=== PATIENT | female | born 1965 | race Hispanic/Latino ===

== ENCOUNTER 2018-06-11 08:02 | Inpatient (IN) | payer OTHER, SELFPAY ==
[2018-05-31 09:24] VITALS: BMI 31.8
[2018-06-11] VITALS (21 sets, daily range): BP systolic 104–140; BP diastolic 59–96; PULSE 71–96; RESP 6–20; TEMP 35.6–36.8; O2SAT 89–100; BMI 31.4; BMI 31.8
[2018-06-11] MEDS: LACTATED RINGERS 1,000 ML 42 ML IV (09:27)
--- NOTE | 2018-06-11 10:51 | PM.PREOP ---
Pre-operative Note Interval Note Pre-op Check: Yes History & Physical Reviewed by Physician and Yes Exam Performed Changes: No
--- NOTE | 2018-06-11 10:51 | PM.OP.1 ---
Operative Date/Time/Diagnoses Date of procedure: 06/11/18 Time of procedure: 15:09 Pre-op diagnosis: Lumbar stenosis with radiculopathy Post-op diagnosis: same Procedure & Clinicians Procedure: L5S1 TLIF (post/post innerbody fusion) L5 and S1 screws L5S1 cage icbg L5S1 laminectomy microscope placement of epidural catheter Same procedure as scheduled: Yes Indications: [age] year old female with intractable pain from stenosis. They had failed conservative management and requested operative intervention. Risks and benefits of surgery were discussed and appropriate consents were obtained. Surgeon: Carlos Manuel Duvall Archives Technician: Melissa Brown Anesthesia Type: General Operative Notes Findings: none Closure Type: primary Specimen(s): none sent Implants & Drains: NuVasive MAS reline screws and Globus Rise cage Applied: catheter Estimated Blood Loss (mL): 300 Procedure in detail: The patient was brought to the operating room and intubated on the table. A time-out was performed. They were then rolled over to the well-padded Mendel table in the prone position. Preoperative antibiotics were given. The back was prepped and draped in the standard sterile fashion. Using fluoroscopy, a 4 cm longitudinal incision was made to the right of the midline. We used Bovie to come down to and split the lumbodorsal fascia. Using fluoroscopy and monitoring, we then percutaneously placed Jamshidi needles down the pedicles of L5 and S1 on the right side. These were changed out to guidewires and then we tapped and then placed the NuVasive MAS Precept screw shanks. We then opened up the retractors and used Bovie to clear up the posterolateral gutter as well as medially along the lamina to the spinous processes. A bur was used to decorticate the transverse processes. Using a combination of bur and Kerrison rongeurs, a laminectomy was performed from the right side. We cleared over past the midline and carefully depressed the dura until we were able to decompress the opposite side. We cleared out the neural foramen. This completed the laminectomy at L5-S1. We then began the TLIF prep. A complete facetectomy was performed on this side at L5-S1. We carefully cleaned up the remainder of the foramen until we could easily retract the exiting root as well as clearing medially below the dura and expose the disc space. The disc was prepped with bipolar and then an annulotomy was performed. There was a large amount of epidural bleeding at this point. Had to use a combination of bipolar, FloSeal, and patties to finally be able to get it to stop but then it was dry after that. We performed a diskectomy using a combination of paddles, ping, Kerrison, and curettes. We distracted the disc using a paddle and locked the retractor in an open position. We then filled the disc space with Osteocell bone graft. We then placed the globus Rise cage under fluoroscopy and then filled this in with more bone graft. The distraction on the retractor was released to compress down. This completed the posterior interbody fusion portion of the TLIF at L5-S1. We then placed the screw heads, prerna, and locked down the set screws. The wound was copiously irrigated. A small stab incision was made over the PSIS. We used a Jamshidi needle to aspirate several mL of bone marrow from the pelvis. This was mixed with the remaining Osteocell and combined with all of the locally harvested bone graft and placed in the posterolateral gutter for the posterior fusion of the TLIF at L5-S1. An epidural catheter was then placed in the spinal canal by carefully depressing the dura and advancing it 6 cm cephalad under the remaining lamina without resistance. The muscle fascia was closed. The catheter was then injected with a solution containing 4 mL of 0.5% Marcaine, 1 mg Stadol, 4 mg Duramorph, and 100 mcg of fentanyl. This was injected without resistance and the catheter was pulled. We then went to the opposite side. Again using fluoroscopy, a 3 cm incision was made and Bovie was used to come down to split the fascia. Using neural monitoring and fluoroscopy, Jamshidi needles were advanced down the pedicles of L5 and S1 on the left side. These were switched over guidewires, tapped, and screws placed. We then placed a prerna and locked the set screws on this side. The wound was irrigated. The fascia was closed. Vancomycin powder was placed in the wounds. The superficial and skin were closed. A sterile dressing was placed. The patient was then rolled over extubated and brought to recovery room without complications. Complications: none Condition: stable Disposition: PACU Plan for aftercare: Inpatient. Up with therapy.
[2018-06-11] MEDS: CEFAZOLIN 2 GM/100 ML FROZ.PIGGY IV ×2 (11:40→20:37)
[2018-06-11] MEDS: LACTATED RINGERS 1,000 ML 73.3 ML IV (12:23)
--- NOTE | 2018-06-11 12:41 | SUR.OPER ---
Prone on spine table, head in foam head support, padded chest and pelvic supports, gel pad at knees, lower legs supported by pillows; nipples, genitalia and toes free of pressure, arms secured on foam padded arm boards at <90 degrees abduction. Tape over blanket at thigh secured to table.
[2018-06-11] MEDS: THROMBIN (BOVINE) 5,000 UNIT VIAL 5000 UNIT TOP (12:52)
[2018-06-11] MEDS: SODIUM CHLORIDE 0.9% 1,000 ML, GENTAMICIN 80 MG IRR (12:55)
[2018-06-11] MEDS: VANCOMYCIN 1,000 MG VIAL 1000 MG TOP (12:55)
[2018-06-11] MEDS: BUPIVACAINE 0.5% (PF) 4 ML, MORPHINE-PF 4 MG, BUTORPHANOL 1 MG, fentaNYL 100 MCG INJ (14:30)
--- NOTE | 2018-06-11 14:51 | DI.RAD.S_ITS ---
PROCEDURE: XR LUMBAR SPINE 2-3V INDICATIONS: L5-S1 TLIF TECHNIQUE: 2 views of the lumbar spine were acquired. COMPARISON: None. FINDINGS: 2 intraoperative fluoroscopy images demonstrate discectomy and posterior fusion at L5-S1. There is a disc prosthesis. Surgical hardware are in expected position. The alignment is normal. IMPRESSION: Expected post surgical changes. Dictated by: Ibis Alvarado M.D. on 06/11/2018 at 17:12 Approved by: Ibis Alvarado M.D. on 06/11/2018 at 17:14
[2018-06-11] MEDS: fentaNYL 100 MCG/2 ML INJ 50 MCG IV ×4 (15:53→16:13)
--- NOTE | 2018-06-11 15:54 | SUR.PHASEI ---
Squeezing right hand. Says it is numb. When asked says it is always a little mumb. BP cuff moved to left arm from [facility]
[2018-06-11] MEDS: ONDANSETRON 4 MG/2 ML INJ IV (17:19)
[2018-06-11] MEDS: LACTATED RINGERS 1,000 ML 125 ML IV (17:19)
[2018-06-11] MEDS: SENNOSIDES 8.6 MG TABLET 17.2 MG PO (20:39)
[2018-06-11] MEDS: GABAPENTIN 300 MG CAPSULE PO (20:39)
[2018-06-11] MEDS: DOCUSATE 100 MG CAPSULE PO (20:39)
[2018-06-11] MEDS: CELECOXIB 200 MG CAPSULE PO (20:39)
[2018-06-11] MEDS: METOCLOPRAMIDE 10 MG/2 ML INJ IV (21:25)
--- NOTE | 2018-06-11 21:52 | PC.NURSE ---
Post-op notes: 1644: Nicolasa brought from PACU via hospital bed, awake, Ox3, drowsy & sedated, falling asleep, RA oxygen dipping into the 80's. ASSISTANT TO THE DIRECTOR applied 2L O2, sats going back up in the 90's. Sats have maintained mid-high 90's until she closes her eyes and starts to doze, sats earlier even on 2L dropping to 78 once, but mostly mid 80's. Arouses quickly and sats go back to high 90's and 100% while awake & talking to family. I observed obvious apneic periods when is asleep. I increased O2 to 4L O2 by this nurse until patient more awake. I notified RT of need for O2 & apnea. Continuous pulse ox monitoring at all times. Patient told nursing I need to have a sleep study. Medicated with Zofran IV for nausea earlier tonight, pt then able to tolerate clear/full liquids, then small snacks. She did tell staff member I threw up twice but family did not measure or save for accurate output measurement. Staff asked family to call nurse if patient becomes nauseated or throws up--they agree to this. 2100: Nicolasa is much more awake tonight, Ox3, O2 monitor not alarming when asleep. After 2100 med pass, patient asked for turkey sandwich & apple juice. Denied nausea at that time. Within 10 minutes she vomited 600 ml liquid/food mixed. Medicated with Reglan IV. She denies any back pain. Repositioned to right side for comfort, back drsg remains CDI. She is now dozing, call button in reach & bed alarm active. Her son is staying the night on window bench.
[2018-06-11] MEDS: HYDROCODONE/ACET 5/325 TABLET 2 TAB PO (22:12)
[2018-06-12] VITALS (8 sets, daily range): BP systolic 96–112; BP diastolic 60–78; PULSE 73–101; RESP 16–18; TEMP 36.4–36.8; O2SAT 92–100
--- NOTE | 2018-06-12 00:15 | PC.NURSE ---
Addendum entered by Dale Price R.N. 06/12/18 06:16: 0600: Pt slept for a few hours after pain medication, states she feels better, and less pain. Original Note: Rubber Production Machine Operator Note: 0000: Awake, alert. Advised pt to take clear liquids tonight and advance as tolerated in the morning due to nausea and vomiting. Instructed in log-rolling. Turned and repositioned at this time. SCDs on. Dressing to lower back is cdi. IV in place in lt hand with LR infusing at 125cc/hr. Son at bedside.
[2018-06-12] MEDS: HYDROCODONE/ACET 5/325 TABLET 1 TAB PO ×2 (02:06→18:23)
[2018-06-12] MEDS: hydrOXYzine pamoate 25 MG CAPSULE PO ×2 (02:06→16:06)
[2018-06-12] MEDS: HYDROCODONE/ACET 5/325 TABLET 2 TAB PO ×5 (02:07→22:41)
[2018-06-12] MEDS: LACTATED RINGERS 1,000 ML 125 ML IV (02:07)
[2018-06-12] MEDS: CEFAZOLIN 2 GM/100 ML FROZ.PIGGY IV (04:22)
[2018-06-12 07:34] LABS: Hematocrit 34.3 % (36-46); Hemoglobin 11.5 g/dL (12.0-16.0)
[2018-06-12] MEDS: DOCUSATE 100 MG CAPSULE PO ×2 (07:52→19:57)
[2018-06-12] MEDS: CELECOXIB 200 MG CAPSULE PO ×2 (07:52→19:57)
--- NOTE | 2018-06-12 07:57 | PM.PNPO.1 ---
Subjective Date Patient Seen: 06/12/18 Time Patient Seen: 07:58 Interval history: She is doing fairly well. Pain is about a 6. No leg pain, all back pain. Exam Vital Signs (past 8 hours): - 06/12/18 06:15 06/12/18 07:18 Temperature 97.6 F 98.1 F Pulse Rate 73 77 Respiratory Rate 16 18 Blood Pressure 105/63 106/60 Pulse Oximetry 98 100 Oxygen Delivery Method Room Air Oxygen Flow Rate 2 Const Orientation: alert and oriented x3 Back/Spine/Pelvis Other: 5/5 motor both lower extremities. Minimal dry drainage on dressing. Objective Labs Result Diagrams: 06/12/18 06:05 Labs: Laboratory Results - last 24 hr 06/12/18 06:05 Hgb 11.5 L Hct 34.3 L Assessment & Plan Post-op Postoperative Procedures Operation Date: 06/11/18 10:15 Actual Procedures Side Surgeon p L5-S1 Laminectomy & Instru. Fusion(TLIF)w/Bone Graft Carlos Manuel Duvall MD Overall she is doing very well. Mobilize with physical therapy. Anticipate discharge in the next 1-2 days. Quality VTE Deep Vein Thrombosis/Pulmonary Embolism Present on Admission: No
--- NOTE | 2018-06-12 11:15 | PT.IIE ---
Current Diagnoses Spinal stenosis, lumbar region with neurogenic claudication (06/11/18) Strain of muscle, fascia and tendon of lower back, subsequent encounter (06/11/18) Surgery Performed Operation Date: 06/11/18 10:15 Actual Procedures p L5-S1 Laminectomy & Instru. Fusion(TLIF)w/Bone Graft - Carlos Manuel Duvall MD Surgical History (Last Updated 05/31/18 @ 10:30 by Judith Agosto, RN) H/O left knee surgery (Acute) H/O: (Acute) History of ankle surgery (Acute) History of bilateral tubal ligation (Acute) Hx laparoscopic cholecystectomy (Acute) S/P epidural steroid injection (Acute) S/P right knee arthroscopy (Acute) Status post left foot surgery (Acute) Medical History (Last Updated 05/31/18 @ 10:38 by Judith Agosto, RN) Hypertension (Acute) Lumbar stenosis with neurogenic claudication (Acute) Postmenopausal (Acute) Seasonal allergies (Acute) Strain of lumbar region (Acute) Tinnitus, right ear (Acute) Vitamin D deficiency (Acute) Physical Therapy Inpatient Evaluation/Re-Eval M1 PT/OT-IP Prior Functional Status Start: 06/12/18 13:43 Freq: NEEDED Status: Active Protocol: Document 06/12/18 11:15 AB (Rec: 06/12/18 13:51 AB [id number]) Medical Review Prior Functional Status Medical History Reviewed Yes Communication able to make needs known Mobility and Gait stated that she is independent with all mobilities and ambulation without AD Social History Household Members spouse family children Living Arrangements House Number of Floors (Floors) One Floor Number of Stairs To Enter/Railing? 2 steps to enter without rails Home Environment Standard Height Toilet Tub/Shower Employment Status Retired Additional Social History Comment stated that her daughter will assist her at home M2 PT-IP Current Condition Start: 06/12/18 13:43 Freq: NEEDED Status: Active Protocol: Document 06/12/18 11:15 AB (Rec: 06/12/18 13:51 AB [id number]) Physical Therapy Current Condition Current Condition Evaluation Date 06/12/18 Treatment Diagnosis s/p L5S1 TLIF, laminectomy; difficulty in walking Onset Date 06/11/18 Precautions Lumbar Precautions Log Roll No Twisting Limit Bending Lifting Restriction of 10 lbs Gait Belt above Incisional Area M3 PT-IP Subjective Start: 06/12/18 13:43 Freq: NEEDED Status: Active Protocol: Document 06/12/18 11:15 AB (Rec: 06/12/18 13:51 AB [id number]) Subjective Physical Therapy Visit Type Type Initial Evaluation Visit Start Time 11:15 Visit Stop Time 11:54 Total Visit Minutes 39 Number of PAUNCH TRIMMER Visits 0 Physical Therapy Visit Comments Patient Comments pt agreed to get up Therapy Pain Assessment Pain When Pain Assessed During Mobility Pain Present Pain Present Pain Reported Location Back Scale Used pain scale not stated Pain Management Techniques Apply Cold Timing of Activity with Medications M4 PT-IP Mobility and Gait Start: 06/12/18 13:43 Freq: NEEDED Status: Active Protocol: Document 06/12/18 11:15 AB (Rec: 06/12/18 13:51 AB [id number]) PT-Bed Mobility Assessment Supine to Sit Supine to Sit Minimal Assistance Scooting Scooting to Edge of Bed Contact Guard Assistance PT-Transfer Assessment Sit to and From Stand Sit to and from Stand Contact Guard Assistance Equipment Transfer Assistive Device Gait Belt Front Wheeled Walker Orthotic/Prosthetic Devices or Brace: No Transfers Transfer Destination Chair Transfer Ability Level of Assist Contact Guard Assistance Gait Assessment Gait Gait Assistance Required: Minimum Assistance Distance (Feet) (feet) 15 Able to Maintain Weight Bearing Status Yes During Gait Assistive Devices Assistive Device None Front Wheeled Walker Orthotic/Prosthetic Devices or Brace: No Gait Deviations General Gait Pattern Decreased Stride Length Decreased Feet Clearance Factors Limiting Gait Function Factors Limiting Gait Function Decreased Activity Tolerance Decreased Strength Pain Poor Balance Poor Safety Awareness PT-Balance Assessment Sitting Balance and Reactions Static Sitting Balance Ability Good Dynamic Sitting Balance Ability Good Standing Balance and Reactions Static Standing Balance Ability Fair Dynamic Standing Balance Ability Fair Device Used FWW M5 PT-IP Objective Assessments Start: 06/12/18 13:43 Freq: NEEDED Status: Active Protocol: Document 06/12/18 11:15 AB (Rec: 06/12/18 13:51 AB [id number]) Orientation Orientation/Cognition Level of Alertness Alert Orientation Name Age Birthday Month Date Year Day of Week Place Situation Safety Awareness Decreased Safety Awareness Gross Range of Motion Lower Extremity ROM Assessment Within Functional Limits Strength Lower Extremity Strength Assessment Bilaterally Impaired Comments Strength Comments LLE weaker than RLE LLE 3+/5 Sensation Assessment Sensation Gross Sensation WNL Muscle Tone Muscle Tone WNL Yes M6 PT-IP Treatment Start: 06/12/18 13:43 Freq: NEEDED Status: Active Protocol: Document 06/12/18 11:15 AB (Rec: 06/12/18 13:51 AB [id number]) Physical Therapy Treatment Education Education Provided Precautions Weight Bearing Status Post-Op Packet Safety M7 PT-IP Assessment and Plan Start: 06/12/18 13:43 Freq: NEEDED Status: Active Protocol: Document 06/12/18 11:15 AB (Rec: 06/12/18 13:51 AB [id number]) PT Summary Assessment and Plan Potential Rehabilitation Potential Good Status of Condition at Evaluation Stable Summary Impairments Pain ROM Strength Balance Coordination Sensation Tone Cognition Bed Mobility Transfers Gait Activity Tolerance Assessment Summary pt requiring min A with mobility and unable to tolerate much ambulation this morning using FWW. pt will likely progress with mobility during hospital stay. pt's daughter will be assisting pt at home. caregiver training will be conducted when appropriate. stair climbing will also be completed prior to d/c. Goals Bed Mobility Goal Independent Transfer Goal Standby Assistance Front Wheeled Walker Gait Goal Standby Assistance Front Wheel Walker Gait Distance 100 Other Goals up/down 2 steps without rails Days to Meet Goals 3 Frequency of Treatment Frequency Of Treatment Twice a Day Treatment Plan Physical Therapy Treatment Plan Bed Mobility Training Transfer Training Gait Training Therapeutic Exercise Balance Retraining Post Op Education Discharge Planning Hot or Cold Pack Neuromuscular Re-ed Coordination Retraining Manual Therapy Other Recommendations and Next Treatment ambulation, stair climbing Focus Recommendations To Nursing Amount of Assist Needed 1 Person Assist Discharge Recommendations PT Discharge Recommendations Home with Assistance Equipment Needed for Home Before FWW: pt stated that they will Discharge be able to get one
--- NOTE | 2018-06-12 11:25 | PC.NURSE ---
Day Shift Note Alert and oriented x3. Weaned off oxygen to RA with sats in the 94-96% range. Reports pain well controlled on [place]. Denies any nausea. Tolerated full liquids for breakfast, advanced to regular diet for lunch. PT currently in room to work with patient.
--- NOTE | 2018-06-12 14:30 | OT.IP.EVAL ---
Current Diagnoses Spinal stenosis, lumbar region with neurogenic claudication (06/11/18) Strain of muscle, fascia and tendon of lower back, subsequent encounter (06/11/18) Surgery Performed Operation Date: 06/11/18 10:15 Actual Procedures p L5-S1 Laminectomy & Instru. Fusion(TLIF)w/Bone Graft - Carlos Manuel Duvall MD Past Medical History (Last Updated 05/31/18 @ 10:38 by Judith Agosto, RN) Hypertension (Acute) Lumbar stenosis with neurogenic claudication (Acute) Postmenopausal (Acute) Seasonal allergies (Acute) Strain of lumbar region (Acute) Tinnitus, right ear (Acute) Vitamin D deficiency (Acute) Surgical History (Last Updated 05/31/18 @ 10:30 by Judith Agosto, RN) H/O left knee surgery (Acute) H/O: (Acute) History of ankle surgery (Acute) History of bilateral tubal ligation (Acute) Hx laparoscopic cholecystectomy (Acute) S/P epidural steroid injection (Acute) S/P right knee arthroscopy (Acute) Status post left foot surgery (Acute) Occupational Therapy Inpatient Evaluation/Re-Eval M1 PT/OT-IP Prior Functional Status Start: 06/12/18 13:43 Freq: NEEDED Status: Active Protocol: Document 06/12/18 14:30 HARVEY (Rec: 06/12/18 17:17 PJM [id number]) Medical Review Prior Functional Status Medical History Reviewed Yes Diet/Fluid Consistency Regular Communication WNL, first language is Tristanian , but pt speaks and understands Cameroonian well Mobility and Gait stated that she is independent with all mobilities and ambulation without AD Activities of Daily Living and IADL's Pt indep with 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 Prior Functional Level (Other details) (works) and 2 daughters can assist pt after discharge. One daughter is taking 1 week off work to assist pt PRN. Social History Household Members spouse family children Living Arrangements House Number of Floors (Floors) One Floor Number of Stairs To Enter/Railing? 2 stairs to enter, no rail Home Environment Standard Height Toilet Tub/Shower Doors Home Equipment Front Wheel Walker Long Handled Sponge Wall To Wall Carpet Installer Employment Status Unemployed Additional Social History Comment Pt lives with , 2 daughters, son, son in law, 2 small grandchildren. M2 OT-IP Current Condition Start: 06/12/18 17:02 Freq: Status: Active Protocol: Document 06/12/18 14:30 PJM (Rec: 06/12/18 17:17 PJM [id number]) Occupational Therapy Current Condition Current Condition Evaluation Date 06/12/18 Treatment Diagnosis decreased self care,mobility s /p L5-S1 lami/TLIF Diagnosis Onset Date 06/11/18 Post Operative Precautions Lumbar Precautions Log Roll No Twisting Limit Bending Lifting Restriction of 10 lbs Gait Belt above Incisional Area M3 OT- IP Subjective and Pain Start: 06/12/18 17:02 Freq: Status: Active Protocol: Document 06/12/18 14:30 PJM (Rec: 06/12/18 17:17 PJM [id number]) OT- Subjective Occupational Therapy Visit Type Type Initial Evaluation Visit Start Time 14:01 Visit Stop Time 14:30 Total Visit Minutes 29 Occupational Therapy Visit Comments Patient/Caregiver Goals to go home tomorrow OT Pain Assessment Pain When Pain Assessed After Treatment Pain Present Pain Present Pain Reported Location Back Intensity 6 Scale Used Numeric (1 - 10) Description Aching Acute M4 OT- IP ADL's Start: 06/12/18 17:02 Freq: Status: Active Protocol: Document 06/12/18 14:30 PJM (Rec: 06/12/18 17:17 PJM [id number]) OT [id number] General Evaluation Diet Level for Self-Feeding general Self-Feeding Ability Independent OT ADL-Grooming General Evaluation Grooming Ability Standby Assistance Comments OT Grooming Comments in chair OT ADL-Oral Care General Eval Oral Care Ability Standby Assistance Comments Oral Care Comments in chair OT ADL-Dressing General Eval Upper Body Dressing Ability Independent Lower Body Dressing Ability Maximum Assistance Areas Needing Assistance Pants/Shorts Socks Assistive Devices Dressing Assistive Devices Wall To Wall Carpet Installer Comments OT Dressing Comments Provided education re: lower body dressing with foreign food specialty cook, sock aid. Provided foreign food specialty cook. Pt declines sock aid as she prefers family to assist PRN. She wears slip on shoes; declines long shoe horn. Daughters to assist pt PRN at home. OT ADL-Toileting General Evaluation Toileting Ability Minimal Assistance Areas Needing Assistance Perform Perineal Hygiene Comments OT Toileting Comments Provided education re: options and resources for toilet paper aids. Daughters to look online and order one for pt. OT ADL-Bathing Devices Bathing Equipment Long Handled Sponge or [place] Comments OT Bathing Comments to be assessed. Pt has long bath sponge. Provided education re: body mechanics. Pt plans to stand to shower. M5 OT- IP IADL's Start: 06/12/18 17:02 Freq: Status: Active Protocol: Document 06/12/18 14:30 PJM (Rec: 06/12/18 17:17 PJM [email or web address]) OT-Instrumental Activities of Daily Living Deficits IADL Deficits Identified Deficits Home Safety Awareness Awareness of Need for Assistance at Home Good Awareness Ability to Problem Solve Emergency Able to Problem Solve Situations Medication Management Medication Management No Deficits Identified Money Management Money Management No Deficits Identified Meal Preparation Meal Preparation Caregiver Provides Assist Meal Preparation Comments family to assist PRN Analyst Geochemical Prospecting Analyst Geochemical Prospecting Caregiver Provides Assist Analyst Geochemical Prospecting Comments family to assist PRN Driving Driving Comments family to assist until pt able M6 OT- IP Functional Cognition Start: 06/12/18 17:02 Freq: Status: Active Protocol: Document 06/12/18 14:30 PJM (Rec: 06/12/18 17:17 PJM [email or web address]) Cognitive Factors Limiting Selfcare Function Cognitive Ability Level of Alertness Alert Patient Orientation Name Age Birthday Month Date Year Day of Week Place Situation Attention Span Ability Capable of Focused Attention Capable of Sustained Attention Ability to Follow Commands Able to Follow One Step Commands Memory Description No Deficits Noted Safety Awareness No Deficits Noted Problem Solving Ability No deficits Noted Executive Function Ability No Deficits Noted Cognitive Comments Cognitive Assessment Comments cognition appears WNL OT- Vision and Hearing OT- Hearing Assessment OT- Hearing Assessment WFL OT- Vision Assessment Visual Acuity WFL Vision Assessment Comments Pt denies any recent changes. M7 OT- IP Mobility and Balance Start: 06/12/18 17:02 Freq: Status: Active Protocol: Document 06/12/18 14:30 PJM (Rec: 06/12/18 17:17 PJM [id number]) OT-Transfer Assessment Comments Mobility Comments see P.T. notes OT- Gait Assessment Comments Gait Ability Comments see P.T. notes OT- Balance Assessment Comments Other Balance Tests/Deviations/Treatment see P.T. notes : M8 OT- IP Objective Assessments Start: 06/12/18 17:02 Freq: Status: Active Protocol: Document 06/12/18 14:30 PJM (Rec: 06/12/18 17:17 PJM [id number]) OT Gross Range of Motion Upper Extremity Range of Motion Assessment Within Functional Limits OT Strength Upper Extremity Strength Assessment Within Functional Limits OT- Coordination Assessment Comments Coordination Comments BUE WFL OT-Muscle Tone Assessment Muscle Tone WNL Yes OT Sensation Assessment Comments Summary Comments Pt denies deficits in BUE's Edema Edema Absent M9 OT- IP Assessment and Plan Start: 06/12/18 17:02 Freq: Status: Active Protocol: Document 06/12/18 14:30 PJM (Rec: 06/12/18 17:17 PJM [id number]) OT Summary Assessment and Plan Potential Rehabilitation Potential Good Analytic Complexity at Evaluation Low Summary OT Impairments Pain Grooming Dressing Toileting Bathing Toilet Transfers Shower Transfers Assessment Summary Low complexity OT assessment completed with emphasis on self are skills within lumbar spine precautions. Pt currently has mild performance deficits in standing grooming, dressing, bathing, toileting and functional mobility. Pt will benefit from one additional OT visit here to practice adapted ADLS. Anticipate pt will be able to discharge home with family assist when medically stable and clears P.T. Goals Grooming Goal Independent Dressing Goal Standby Assistance Wall To Wall Carpet Installer Toileting Goal Standby Assistance Toilet Paper Aid Bathing Goal Minimal Assistance Toilet Transfer Goal Independent Shower Transfer Goal Standby Assistance Patient/Caregiver Education Goal Demonstrate Post-Op Precautions Caregiver Independent Assisting Patient OT-Other Goals Grooming to be done standing with good body mechanics. Family will assist with socks at home PRN. Days to Meet Goals 2 Frequency of Treatment Frequency Of Treatment Once a Day Treatment Plan OT Treatment Plan ADL Training Functional Mobility Patient/Family Education Discharge Planning Discharge Recommendations OT Discharge Recommendations Home with 23/04 Assist
--- NOTE | 2018-06-12 15:25 | PT.IPTN ---
Current Diagnoses Spinal stenosis, lumbar region with neurogenic claudication (06/11/18) Strain of muscle, fascia and tendon of lower back, subsequent encounter (06/11/18) Surgery Performed Operation Date: 06/11/18 10:15 Actual Procedures p L5-S1 Laminectomy & Instru. Fusion(TLIF)w/Bone Graft - Carlos Manuel Duvall MD Physical Therapy Treatment Note M2 PT-IP Current Condition Start: 06/12/18 13:43 Freq: NEEDED Status: Active Protocol: Document 06/12/18 11:15 AB (Rec: 06/12/18 13:51 AB [id number]) Physical Therapy Current Condition Current Condition Evaluation Date 06/12/18 Treatment Diagnosis s/p L5S1 TLIF, laminectomy; difficulty in walking Onset Date 06/11/18 Precautions Lumbar Precautions Log Roll No Twisting Limit Bending Lifting Restriction of 10 lbs Gait Belt above Incisional Area M3 PT-IP Subjective Start: 06/12/18 13:43 Freq: NEEDED Status: Active Protocol: Document 06/12/18 15:24 LJ (Rec: 06/12/18 15:25 LJ [id number]) Subjective Physical Therapy Visit Type Type Patient Refusal Notes Nurse in with pt. Just returned to bed. Reported pain in minimal. Nurse stated they would get her up and walk later.
--- NOTE | 2018-06-12 15:43 | CM.DANOTE ---
Patient is a 53 year old female who was admitted on 06/11/18 for TLIF. Pt has [employer] for insurance and her PCP is Dr. Addison. EMR was reviewed. Per MD, pt tolerated procedure well and likely can d/c home in 1-2 days pending progress with PT. Per PT, pt is Independent with ADL's at baseline and lives with family and Dtr is available to assist at d/c and likely will be safe for d/c home. Recommending FWW at d/c that fits pt's small stature. No needs currently identified. SW unable to complete bedside assessment due to triage needs. Plan for d/c home pending PT. Plan: SW to follow for further PT to confirm pt safe for d/c home with family assist when medically stable. SW to follow for any further identified discharge planning needs. ASLHEY Duran Discharge Planning/Care Management CM Discharge Assessment Start: 06/12/18 15:41 Freq: Status: Active Protocol: Document 06/12/18 15:41 BF (Rec: 06/12/18 15:43 BF [id number]) Discharge Planning Assessment Assigned Hospice Community Liaison ASHLEY Marks Advance Directives? No Advance Directives on File No History Provided By Patient Medical Record Has Patient been admitted in last 30 No days? Prior Living Arrangements House Household Members spouse family children Type of transporation used prior to Drives own vehicle admit Independent with ADL's Yes Is patient alert and oriented? Yes Caregiver for Another Yes: children Barriers to Discharge No Discharge Plan Home Community Services Physical Therapy Transportation Arrangement Family plans to provide transport Referrals Initiated None needed Inpatient Status as of 06/11/18 Whiteboard Updated in Patient Room with No name and ext. # of Hospice Community Liaison Review Status In Process Please Provide Date Initial DC 06/12/18 Assessment Was Performed
--- NOTE | 2018-06-12 18:29 | PC.NURSE ---
vicodin 2 tabs vicodin administered at 1820. Only 1 documented as when scanned 2nd tab triggered warning that tylenol max was reached for the 24hr limit. this is in fact incorrect. per review 3 tabs (1 under the 1 tab and 2 under the 2 tab) were scanned at 0207. per the narcotics count sheet, only 2 tabs were checked out to the patient.
[2018-06-12] MEDS: CYCLOBENZAPRINE 10 MG TABLET PO (19:56)
[2018-06-12] MEDS: SENNOSIDES 8.6 MG TABLET 17.2 MG PO (19:56)
[2018-06-12] MEDS: GABAPENTIN 300 MG CAPSULE PO (19:57)
[2018-06-12] MEDS: SODIUM CHLORIDE 0.9% FLUSH 10 ML IV (19:58)
[2018-06-13] MEDS: HYDROCODONE/ACET 5/325 TABLET 2 TAB PO ×3 (03:54→12:03)
[2018-06-13 04:30] VITALS: BP 125/75; PULSE 83; RESP 17; TEMP 36.9; O2SAT 92
--- NOTE | 2018-06-13 07:27 | PM.PNPO.1 ---
Subjective Date Patient Seen: 06/13/18 Interval history: Patient seen bedside s/p TLIF POD #2. Patient doing well. Exam Vital Signs (past 8 hours): - 06/13/18 04:30 Temperature 98.4 F Pulse Rate 83 Respiratory Rate 17 Blood Pressure 125/75 Pulse Oximetry 92 Fraction of Inspired Oxygen 21 Oxygen Delivery Method Room Air Oxygen Flow Rate 0 Objective Labs Result Diagrams: 06/12/18 06:05 Labs: Laboratory Results - last 24 hr 06/12/18 06:05 Hgb 11.5 L Hct 34.3 L Assessment & Plan Post-op Postoperative Procedures Operation Date: 06/11/18 10:15 Actual Procedures Side Surgeon p L5-S1 Laminectomy & Instru. Fusion(TLIF)w/Bone Graft Carlos Manuel Duvall MD Quality VTE Deep Vein Thrombosis/Pulmonary Embolism Present on Admission: No
--- NOTE | 2018-06-13 07:35 | PM.DS.1 ---
History of Present Illness Date Patient Seen: 06/13/18 Chief complaint: [id number] L5-S1 TLIF Narrative: Patient seen bedside s/p TLIF POD #2. Patient is doing well, pain is controlled and she would like to go home. She denies chest pain, shortness of breath, nausea, vomiting and calf pain. Discharge Providers Date of admission: 06/11/18 08:02 Primary care physician: Ziggy Addison MD Consults: 06/11/18 17:12 Consult to Occupational Therapy Evaluate & Treat Comment: Physician Instructions: Evaluate and treat Consult to Physical Therapy Evaluate & Treat Comment: Physician Instructions: Evaluate and Treat 06/11/18 17:13 Consult to Respiratory Therapy Evaluate & Treat Comment: Physician Instructions: Evaluate and treat Discharge provider: Laurie Hart PA-C Summary Discharge Diagnosis: Lumbar stenosis with neurogenic claudication Hospital Course: Patient admitted to the hospital s/p L5S1 laminectomy and instrumented fusion (TLIF) with bone graft on 06/11/18. Patient tolerated the procedure well with no major complications. Patient was transferred to the floor and seen by PT who recommended discharge home. Patient was stable and ready for d/c on 06/13/18. Status at Discharge Cognitive/behavioral status at discharge: A&Ox4 Functional status at discharge: uses cane/walker Overall status at discharge: patient is progressing back to baseline Exam Vital Signs (past 8 hours): - 06/13/18 04:30 Temperature 98.4 F Pulse Rate 83 Respiratory Rate 17 Blood Pressure 125/75 Pulse Oximetry 92 Fraction of Inspired Oxygen 21 Oxygen Delivery Method Room Air Oxygen Flow Rate 0 Narrative Exam Narrative: Well-developed well-nourished no acute distress. Alert and oriented x3. Lumbar spine dressing is clean dry and intact with no discharge minimal redness and swelling. She is neurovascularly intact bilateral lower extremities with no focal deficits noted. Her calves are soft and compressible. She has full range of motion of the hip knee and ankle. Objective Labs Result Diagrams: 06/12/18 06:05 Labs: Laboratory Results - last 24 hr 06/12/18 06:05 Hgb 11.5 L Hct 34.3 L Discharge Plan Discharge Plan Patient Disposition: Home Discharge comment: Follow-up 1.[address] Duvall Discharge Med Rec/Prescriptions Prescriptions: New docusate sodium 100 mg Capsule 100 mg PO BID Qty: 0 RF: 0 hydroxyzine pamoate 25 mg Capsule 25 mg PO Q4HR PRN (Reason: Nausea And Vomiting) Qty: 50 RF: 0 hydrocodone-acetaminophen 5-325 mg tablet 1 tab PO Q4H PRN (Reason: pain) Qty: 40 RF: 0 Continue losartan 50 mg Tablet 50 mg PO DAILY RF: 0 cyclobenzaprine 10 mg Tablet 5 - 10 mg PO TID PRN (Reason: Muscle Spasm) RF: 0 fluticasone 50 mcg/actuation Blister With Device 2 inh INHALATION DAILY PRN (Reason: Allergies) RF: 0 Discontinued hydrocodone-acetaminophen 5-325 mg Tablet 2 tab PO Q6H PRN (Reason: Pain) RF: 0 Follow up/Referrals: Ziggy Addison MD [Primary Care Provider] - 06/25/18 11:00 am (Follow up with Jackie Hutchison PA-C at the [place] [facility]) Provider Discharge Instructions Diet: Diet as Tolerated Activity: Weightbearing as tolerated, no twisting/bending, use a walker to ambulate, no lifting greater than 5 lbs Cold/Heat Therapy: Apply ice twenty minutes at a time while awake Skin/Wound/Dressing Care Report to your healthcare provider any signs of infection, such as:: chills, fever, night sweats, increased pain and unusual drainage Dressing: Keep dressing clean, dry, and intact Visit Report/Discharge Packet Instructions: DI for Transforaminal Lumbar Interbody Fusion Visit Report Forms: Stroke Signs & Symptoms Discharge Data Primary Care Provider: Ziggy Addison Attending Provider: Carlos Manuel Duvall Admit Date/Time: 06/11/18 08:02 Discharges patient from system. Discharge Date/Time: 06/13/18 12:49 Quality VTE Deep Vein Thrombosis/Pulmonary Embolism Present on Admission: No
[2018-06-13 08:00] VITALS: BP 108/68; PULSE 79; RESP 16; TEMP 36.8; O2SAT 92
[2018-06-13 08:02] VITALS: BP 108/68
[2018-06-13] MEDS: LOSARTAN 50 MG TABLET PO (08:02)
[2018-06-13] MEDS: DOCUSATE 100 MG CAPSULE PO (08:02)
[2018-06-13] MEDS: CELECOXIB 200 MG CAPSULE PO (08:02)
[2018-06-13] MEDS: SODIUM CHLORIDE 0.9% FLUSH 10 ML IV (08:03)
--- NOTE | 2018-06-13 09:04 | PM.DS.1 ---
History of Present Illness Date Patient Seen: 06/13/18 Time Patient Seen: 09:04 Chief complaint: [id number] L5-S1 TLIF Narrative: Admitted for back and leg pain with spinal stenosis. Discharge Providers Date of admission: 06/11/18 08:02 Primary care physician: Ziggy Addison MD Consults: 06/11/18 17:12 Consult to Occupational Therapy Evaluate & Treat Comment: Physician Instructions: Evaluate and treat Consult to Physical Therapy Evaluate & Treat Comment: Physician Instructions: Evaluate and Treat 06/11/18 17:13 Consult to Respiratory Therapy Evaluate & Treat Comment: Physician Instructions: Evaluate and treat Discharge provider: Carlos Manuel Duvall MD Summary Discharge Diagnosis: Lumbar stenosis Hospital Course: She was admitted on 06/11/2018 and underwent a L5-S1 instrumented fusion and laminectomy. She did very well postoperatively. By postoperative day 2, she was up and ambulating independently. Pain level about 2/10. Exam Vital Signs (past 8 hours): - 06/13/18 04:30 06/13/18 08:00 06/13/18 08:02 Temperature 98.4 F 98.3 F Pulse Rate 83 79 Respiratory Rate 17 16 Blood Pressure 125/75 108/68 108/68 Pulse Oximetry 92 92 Fraction of Inspired Oxygen 21 Oxygen Delivery Method Room Air Oxygen Flow Rate 0 Const Orientation: alert and oriented x3 Other: Back/Spine/Pelvis Other: Mild dry drainage. 5/5 motor both lower extremities. Objective Labs Result Diagrams: 06/12/18 06:05 Discharge Plan Discharge Plan Patient Disposition: Home Discharge comment: Follow-up 1.[address] Duvall Discharge Med Rec/Prescriptions Prescriptions: New docusate sodium 100 mg Capsule 100 mg PO BID Qty: 0 RF: 0 hydroxyzine pamoate 25 mg Capsule 25 mg PO Q4HR PRN (Reason: Nausea And Vomiting) Qty: 50 RF: 0 hydrocodone-acetaminophen 5-325 mg tablet 1 tab PO Q4H PRN (Reason: pain) Qty: 40 RF: 0 Continue losartan 50 mg Tablet 50 mg PO DAILY RF: 0 cyclobenzaprine 10 mg Tablet 5 - 10 mg PO TID PRN (Reason: Muscle Spasm) RF: 0 fluticasone 50 mcg/actuation Blister With Device 2 inh INHALATION DAILY PRN (Reason: Allergies) RF: 0 Discontinued hydrocodone-acetaminophen 5-325 mg Tablet 2 tab PO Q6H PRN (Reason: Pain) RF: 0 Follow up/Referrals: Ziggy Addison MD [Primary Care Provider] - 06/25/18 11:00 am (Follow up with Jackie Hutchison PA-C at the [place] [facility]) Provider Discharge Instructions Diet: Diet as Tolerated Activity: Weightbearing as tolerated, no twisting/bending, use a walker to ambulate, no lifting greater than 5 lbs Cold/Heat Therapy: Apply ice twenty minutes at a time while awake Skin/Wound/Dressing Care Report to your healthcare provider any signs of infection, such as:: chills, fever, night sweats, increased pain and unusual drainage Dressing: Keep dressing clean, dry, and intact Visit Report/Discharge Packet Instructions: DI for Transforaminal Lumbar Interbody Fusion Discharge Data Primary Care Provider: Ziggy Addison Attending Provider: Carlos Manuel Duvall Admit Date/Time: 06/11/18 08:02 Quality VTE Deep Vein Thrombosis/Pulmonary Embolism Present on Admission: No
--- NOTE | 2018-06-13 09:15 | PT.IPTN ---
Current Diagnoses Spinal stenosis, lumbar region with neurogenic claudication (06/11/18) Strain of muscle, fascia and tendon of lower back, subsequent encounter (06/11/18) Surgery Performed Operation Date: 06/11/18 10:15 Actual Procedures p L5-S1 Laminectomy & Instru. Fusion(TLIF)w/Bone Graft - Carlos Manuel Duvall MD Physical Therapy Treatment Note M2 PT-IP Current Condition Start: 06/12/18 13:43 Freq: NEEDED Status: Active Protocol: Document 06/12/18 11:15 AB (Rec: 06/12/18 13:51 AB [id number]) Physical Therapy Current Condition Current Condition Evaluation Date 06/12/18 Treatment Diagnosis s/p L5S1 TLIF, laminectomy; difficulty in walking Onset Date 06/11/18 Precautions Lumbar Precautions Log Roll No Twisting Limit Bending Lifting Restriction of 10 lbs Gait Belt above Incisional Area M3 PT-IP Subjective Start: 06/12/18 13:43 Freq: NEEDED Status: Active Protocol: Document 06/13/18 09:15 GGD (Rec: 06/13/18 11:06 GGD [email or web address]) Subjective Physical Therapy Visit Type Type Treatment Note Visit Start Time 08:50 Visit Stop Time 09:15 Total Visit Minutes 25 Number of NUCLEAR MEDICINE TECHNICIAN Visits 1 Physical Therapy Visit Comments Patient Comments Pt states she hopes to go home today. Therapy Pain Assessment Pain When Pain Assessed At Rest Pain Present Pain Present Pain Reported Location Back Intensity 3 Scale Used Numeric (1 - 10) Pain Management Techniques Timing of Activity with Medications M4 PT-IP Mobility and Gait Start: 06/12/18 13:43 Freq: NEEDED Status: Active Protocol: Document 06/13/18 09:15 GGD (Rec: 06/13/18 11:06 GGD [email or web address]) PT-Bed Mobility Assessment Rolling Type of Rolling Log Rolling Roll to Right Level of Assist Standby Assistance Supine to Sit Supine to Sit Contact Guard Assistance Bedrails Sit to Supine Sit to Supine Standby Assistance Scooting Scooting to Edge of Bed Standby Assistance PT-Transfer Assessment Sit to and From Stand Sit to and from Stand Standby Assistance Equipment Transfer Assistive Device Gait Belt Front Wheeled Walker Transfers Transfer Destination Bed Transfer Ability Level of Assist Contact Guard Assistance Gait Assessment Gait Gait Assistance Required: Contact Guard Assist Distance (Feet) 70 Assistive Devices Assistive Device Gait Belt Front Wheeled Walker Gait Deviations General Gait Pattern Decreased Stride Length Decreased Feet Clearance Factors Limiting Gait Function Factors Limiting Gait Function Decreased Activity Tolerance Decreased Strength Pain Stair Climbing Assessment Evaluation Level of Assist On Stairs Contact Guard Assistance Minimal Assistance Devices Stair Climbing Assistive Devices None Technique/Endurance Stair Climbing Direction Ascend and Descend Stair Climbing Technique Step to Step Number of Steps Climbed 3 Query Text: Stair Climbing Set # Repetitions (reps) 1 Comments Stair Climbing Comments Pt needed hand hold assist with descending one step and then CGA for other step. M5 PT-IP Objective Assessments Start: 06/12/18 13:43 Freq: NEEDED Status: Active Protocol: Document 06/12/18 11:15 AB (Rec: 06/12/18 13:51 AB [id number]) Orientation Orientation/Cognition Level of Alertness Alert Orientation Name Age Birthday Month Date Year Day of Week Place Situation Safety Awareness Decreased Safety Awareness Gross Range of Motion Lower Extremity ROM Assessment Within Functional Limits Strength Lower Extremity Strength Assessment Bilaterally Impaired Comments Strength Comments LLE weaker than RLE LLE 3+/5 Sensation Assessment Sensation Gross Sensation WNL Muscle Tone Muscle Tone WNL Yes M6 PT-IP Treatment Start: 06/12/18 13:43 Freq: NEEDED Status: Active Protocol: Document 06/13/18 09:15 GGD (Rec: 06/13/18 11:06 GGD [email or web address]) Physical Therapy Treatment Education Education Provided Precautions Safety M7 PT-IP Assessment and Plan Start: 06/12/18 13:43 Freq: NEEDED Status: Active Protocol: Document 06/13/18 09:15 GGD (Rec: 06/13/18 11:06 GGD [email or web address]) PT Summary Assessment and Plan Summary Assessment Summary Pt improvnig with bed mobility . She needed less assist. She was safe and stable with stairs. she need cues for stairs. Pt may D/C home with medically stable. Frequency of Treatment Frequency Of Treatment Twice a Day Treatment Plan Physical Therapy Treatment Plan Bed Mobility Training Transfer Training Gait Training Therapeutic Exercise Balance Retraining Post Op Education Discharge Planning Hot or Cold Pack Neuromuscular Re-ed Coordination Retraining Manual Therapy Other Recommendations and Next Treatment ambulation, stair climbing Focus Recommendations To Nursing Amount of Assist Needed 1 Person Assist Discharge Recommendations PT Discharge Recommendations Home with Assistance Equipment Needed for Home Before pt has FWW. Discharge
--- NOTE | 2018-06-13 10:50 | OT.IP.TRT ---
Current Diagnoses Spinal stenosis, lumbar region with neurogenic claudication (06/11/18) Strain of muscle, fascia and tendon of lower back, subsequent encounter (06/11/18) Surgery Performed Operation Date: 06/11/18 10:15 Actual Procedures p L5-S1 Laminectomy & Instru. Fusion(TLIF)w/Bone Graft - Carlos Manuel Duvall MD Occupational Therapy Treatment Note M2 OT-IP Current Condition Start: 06/12/18 17:02 Freq: Status: Active Protocol: Document 06/12/18 14:30 PJM (Rec: 06/12/18 17:17 PJM [id number]) Occupational Therapy Current Condition Current Condition Evaluation Date 06/12/18 Treatment Diagnosis decreased self care,mobility s /p L5-S1 lami/TLIF Diagnosis Onset Date 06/11/18 Post Operative Precautions Lumbar Precautions Log Roll No Twisting Limit Bending Lifting Restriction of 10 lbs Gait Belt above Incisional Area M3 OT- IP Subjective and Pain Start: 06/12/18 17:02 Freq: Status: Active Protocol: Document 06/13/18 1050 PJM (Rec: 06/13/18 11:23 PJ [id number]) OT- Subjective Occupational Therapy Visit Type Type Treatment Note Visit Start Time 10:15 Visit Stop Time 10:50 Total Visit Minutes 35 Occupational Therapy Visit Comments Patient Comments My daughter is bring my clothes around 11. Patient/Caregiver Goals to go home today OT Pain Assessment Pain When Pain Assessed After Treatment Pain Present Pain Present Pain Reported Location Back Intensity 4 Scale Used Numeric (1 - 10) Description Aching Acute Pain Behaviors Guarding Management Techniques Distraction Re-positioning Timing of Activity with Medications M4 OT- IP ADL's Start: 06/12/18 17:02 Freq: Status: Active Protocol: Document 06/13/18 1050 PJM (Rec: 06/13/18 11:23 PJ [id number]) OT ADL-Grooming General Evaluation Grooming Ability Independent Comments OT Grooming Comments standing at sink; education re : body mechanics provided OT ADL-Oral Care General Eval Oral Care Ability Independent Areas of Assistance Brushing Teeth Devices Oral Care Devices Toothbrush Comments Oral Care Comments standing at sink; education re : body mechanics provided OT ADL-Dressing General Eval Upper Body Dressing Ability Independent Lower Body Dressing Ability Minimal Assistance Areas Needing Assistance Underpants/Brief Shoes Assistive Devices Dressing Assistive Devices Title Insurance Examiner Comments OT Dressing Comments Family to assist with socks PRN. Pt will wear slip on shoes. Pt modif indep donning/ doffing brief with section supervisor ( provided). OT ADL-Toileting General Evaluation Toileting Ability Independent Comments OT Toileting Comments Provided further education re: body mechanics for kurtis care after BM. Pt has info re: toilet paper aids. OT ADL-Bathing Bathing Type Bathing Type Shower General Evaluation Bathing Ability Minimal Assistance Areas Needing Assistance Wash/Dry Back Wash/Dry Lower Extremities Devices Bathing Equipment Long Handled Sponge or Car Wash Attendant Held Shower Sprayer Comments OT Bathing Comments Pt stood to shower with no LOB . Provided further education re: body mechanics. Pt ahs long bath sponge and family can assist PRN at home. M7 OT- IP Mobility and Balance Start: 06/12/18 17:02 Freq: Status: Active Protocol: Document 06/13/18 1050 PJ (Rec: 06/13/18 11:23 [facility] [id number]) OT- Bed Mobility Assessment Rolling Type of Rolling Roll to Right Level of Assistance Independent Supine to Sit Supine to Sit Assist Independent Scooting Scooting to Edge of Bed Independent OT-Transfer Assessment Sit to and From Stand Sit to and from Stand Independent Transfers Transfer Ability Independent Technique Transfer Destination Chair Shower Stall Toilet Transfer Technique Stand Step Pivot Devices Transfer Assistive Devices Front Wheeled Walker OT- Gait Assessment Gait Gait Assistance Required: Independent Distance (Feet) 25 Assistive Devices Assistive Device Front Wheeled Walker Comments Gait Ability Comments No LOB this session OT- Balance Assessment Sitting Balance and Reactions Static Sitting Balance Ability Normal Dynamic Sitting Balance Ability Normal Standing Balance and Reactions Static Standing Balance Ability Good Dynamic Standing Balance Ability Good M9 OT- IP Assessment and Plan Start: 06/12/18 17:02 Freq: Status: Active Protocol: Document 06/13/18 1050 PJM (Rec: 06/13/18 11:23 [facility] [id number]) OT Summary Assessment and Plan Potential Rehabilitation Potential Good Summary Progress Towards Goals Safe For Discharge Goals Met Assessment Summary All OT education completed today re: adapted ADLS. Pt moving well with only occasional cues to avoid twisting/bending.All OT goals achieved and pt ready for d/c from OT standpoint. Supportive family will provide 24 hr assist at home. Frequency of Treatment Frequency Of Treatment Discharge Treatment Plan Other Treatment Recommendations and Next No further OT services needed. Treatment Focus Discharge Recommendations OT Discharge Recommendations Home with 24/7 Assist
--- NOTE | 2018-06-13 12:02 | CM.DPC ---
DC Note: Pt eager to return home w/her dtr. RN confirms no barriers to safe DC home today w/family. JW
--- NOTE | 2018-06-13 12:47 | PC.NURSE ---
Pt has showered and is now dressed. Dressing to back changed to [place]. Pt's daughter is present to drive her home. Went over d/c instructions with Pt - discussed d/c meds, time of last dose, reviewed post op follow up and signs and symptoms of infection. Pt denies further questions and was taken out to pov with daughter and all belongings.
== END 2018-06-13 12:49 | disposition home or self-care (01) | DRG 455 ==
PROVIDERS: Admitting Provider Orthopaedic Surgery; PCP Family Medicine; Visit Provider Orthopaedic Surgery
PROC: 0SG30AJ Fusion of Lumbosacral Joint with Interbody Fusion Device, Posterior Approach, Anterior Column, Open Approach (ICD-10-PCS; principal; 2018-06-11 10:15)
DX: M48.07 Spinal stenosis, lumbosacral region (principal); M48.062 Spinal stenosis, lumbar region with neurogenic claudication; I10 Essential (primary) hypertension
CPT/HCPCS: 72100; 76001; 85014; 85018; 94760; 97116; 97161; 97165; 97530; 97535; C1776; C1788; J0330; J0595; J0690; J1100; J2250; J2274; J2405; J2704; J2765; J3010